=== PATIENT | female | born 1955 | race Caucasian/White ===

== ENCOUNTER 2018-01-12 11:04 | Outpatient (CLI) | payer OTHER | END 2018-01-12 11:18 | disposition home or self-care (01) | LOC: NUCLEAR 11:04 | DX: I10 Essential (primary) hypertension (principal); I42.8 Other cardiomyopathies ==

== ENCOUNTER 2019-09-18 13:12 | Outpatient (CLI) | payer OTHER | END 2019-09-18 13:24 | disposition home or self-care (01) | LOC: SONOGRAMA 13:12 | DX: N60.82 Other benign mammary dysplasias of left breast (principal); N60.11 Diffuse cystic mastopathy of right breast; N60.12 Diffuse cystic mastopathy of left breast ==

== ENCOUNTER 2020-09-02 15:26 | Outpatient (CLI) | payer OTHER | END 2020-09-02 15:45 | disposition home or self-care (01) | LOC: MAMO-SONO 15:26 | PROVIDERS: ATTEND Surgery | DX: N60.11 Diffuse cystic mastopathy of right breast (principal); N60.12 Diffuse cystic mastopathy of left breast ==

== ENCOUNTER 2025-07-25 12:47 | Outpatient (CLI) | payer OTHER | END 2025-07-25 12:51 | disposition home or self-care (01) | LOC: SONOGRAMA 12:47 | PROVIDERS: ATTEND Obstetrics & Gynecology | DX: N94.0 Mittelschmerz (principal); R10.2 Pelvic and perineal pain ==

== ENCOUNTER 2025-08-27 08:45 | Inpatient (IN) | payer OTHER ==
[~2025-08-27] VITALS: Ht 152.4 cm; Wt 49.9 kg
[2025-08-27 09:55] VITALS: BP 121/59
[2025-08-27] MEDS ORDERED: AMLODIPINE-OLM1 EAC2 (09:56)
[2025-08-27 11:19] LABS: BASO % 0.7 % (0.1-1.2); EOS # 0.09 (0.04-0.54); EOS % 1.1 % (0.7-7.0); LYMPH # 3.40 (1.18-3.74); LYMPH % 41.2 % (19.3-53.1); MEAN PLATELET VOLUME 9.00 fl (9.4-12.4); MONO # 0.73 (0.24-0.82); MONO % 8.8 % (4.7-12.5); NEUT # 3.96 (1.56-6.13); NEUT % 48.0 % (34.0-71.1); RED CELL DISTRIBUTION WIDTH 13.2 % (11.6-14.4)
[2025-08-27 11:45] LABS: INR 0.98; URINE APPEARANCE Clear; URINE BILIRRUBIN Negative (NEGATIVE); URINE BLOOD Negative; URINE COLOR Yellow; URINE GLUCOSE Negative (NEGATIVE); URINE KETONE Negative (NEGATIVE); URINE LEUKOCYTE Negative; URINE NITRATE Negative; URINE PROTEIN Negative (NEGATIVE); URINE UROBILINOGEN 0.2 E.U./dl
[2025-08-27 11:46] LABS: URINE BACTERIA 52.7 uL (0.0-1933); URINE EPITHELIAL CELLS 3.9 uL (0.0-38.8); URINE RBC 7.1 uL (0.0-20.8)
[2025-08-27 11:56] LABS: ALT/SGPT 35.0 U/L (12-78); AST/SGOT 17.0 U/L (15-37); BILIRUBIN TOTAL 0.59 mg/dL (0.3-1.2); BUN CREA RATIO 22.0 (7.0-25.0); CREATININE SERUM 0.5 mg/dL (0.55-1.02); GFR 121.97; GLOBULINA 3.3 G/DL (2.4-3.5); GLUCOSE FASTING 125.0 mg/dL (65-100); OSMOLALITY SERUM 286.0 MOSM/KG (275-295)
[2025-08-27 12:26] LABS: URINE CAST 0.00 uL (0.0-1.40); URINE WBC 1.0 uL (0.0-23.2)
[2025-09-03] MEDS ORDERED: POVIDONE-IODINE 118 ML BOTT TOP ONE (07:05)
[2025-09-03] MEDS ORDERED: CHLORHEXIDINE GLUCONATE 120 ML BOTTLE TOP ONE (07:05)
[2025-09-03] MEDS ORDERED: CEFAZOLIN SODIUM 1,000 MG VIAL ONE (07:06)
[2025-09-03] MEDS ORDERED: SUGAMMADEX SODIUM 200 MG/2 ML VIAL IV ONE (08:01)
[2025-09-03] MEDS ORDERED: PROMETHAZINE HCL 25 MG/ML AMPUL IV SCH (09:54)
[2025-09-03] MEDS ORDERED: MORPHINE SULFATE 4 MG/ML CARTRIDGE IV SCH (09:55)
[2025-09-03] MEDS ORDERED: ONDANSETRON HCL 2 MG/ML VIAL ONE (11:22)
[2025-09-03 12:00] VITALS: BP 114/67
[2025-09-03 15:49] VITALS: BP 136/67
[2025-09-03 19:29] LABS: BASO % 0.2 % (0.1-1.2); EOS # 0.00 (0.04-0.54); EOS % 0.0 % (0.7-7.0); LYMPH # 2.46 (1.18-3.74); LYMPH % 15.0 % (19.3-53.1); MEAN PLATELET VOLUME 9.10 fl (9.4-12.4); MONO # 1.17 (0.24-0.82); MONO % 7.1 % (4.7-12.5); NEUT # 12.68 (1.56-6.13); NEUT % 77.2 % (34.0-71.1); RED CELL DISTRIBUTION WIDTH 12.2 % (11.6-14.4)
[2025-09-03 20:00] VITALS: BP 128/63
[2025-09-03] MEDS ORDERED: FAMOTIDINE/PF 20 MG/2 ML VIAL IV NR (20:00)
[2025-09-04 00:21] VITALS: BP 123/60
[2025-09-04] MEDS ORDERED: GABAPENTIN 300 MG CAPSULE PO SCH (05:00)
[2025-09-04] MEDS ORDERED: SIMETHICONE 125 MG CAPSULE PO SCH (05:00)
[2025-09-04 08:30] VITALS: BP 152/66
[2025-09-04 16:17] VITALS: BP 106/59
[2025-09-05 02:05] VITALS: BP 123/71
[2025-09-05] MEDS ORDERED: IBUPROFEN800 MG PO (06:47)
[2025-09-05] MEDS ORDERED: SIMETHICONE125 M1 PO (06:47)
[2025-09-05] MEDS ORDERED: GABAPENTIN300 MG PO (06:47)
[2025-09-05] MEDS ORDERED: MIRALAX17 GM PO (06:47)
[2025-09-05 07:52] VITALS: BP 107/67
== END 2025-09-05 09:06 | disposition home or self-care (01) | DRG 743 ==
LOC: O/R 09-03 06:00 → OB/GYN 09-03 06:00 → SURH 09-03 07:00 → OB/GYN 09-03 12:11
PROVIDERS: ADMIT Obstetrics & Gynecology; ATTEND Obstetrics & Gynecology
PROC: 0JQC0ZZ Repair Pelvic Region Subcutaneous Tissue and Fascia, Open Approach (ICD-10-PCS; 2025-09-03)
PROC: 0UT97ZZ Resection of Uterus, Via Natural or Artificial Opening (ICD-10-PCS; principal; 2025-09-03 07:00)
DX: N87.1 Moderate cervical dysplasia (principal); N81.4 Uterovaginal prolapse, unspecified; N80.03 Adenomyosis of the uterus; N94.10 Unspecified dyspareunia